=== PATIENT | male | born 1980 | race Hispanic/Latino ===

== ENCOUNTER 2018-12-01 15:08 | Emergency (ER) | payer OTHER, SELFPAY ==
[2018-12-01 15:09] VITALS: BP 133/70; PULSE 65; RESP 16; TEMP 36.6; O2SAT 100; BMI 24.3
--- NOTE | 2018-12-01 16:51 | ED.VISSUMM ---
- ER Visit Summary Date of Service: 12/01/18 Chief Complaint: Bilateral ear pain History of Present Illness: The patient is a 38 M who has bilateral ear pain. It started a week ago. He denies any drainage from the ears. No fevers. He states that started with a left and then traveled to the right and now both of them hurt. He admits to nasal congestion. He tried Tylenol without any relief. Physical Examination: Vital signs reviewed. HEENT exam unremarkable. No signs of otitis media. No fluid behind the eardrums. He does have sinus congestion. Heart is regular rate and rhythm without murmurs. Lungs are clear to auscultation. Abdomen is soft and nontender. Extremities reveal no edema. Skin exam normal. Neurologic exam normal. Test Results: None performed Emergency Department Course and Treatment: This likely is a URI. I will treat him with Mucinex D. He will follow-up with his PCP Treatment Plan: [] Disposition: Discharge Impression: Viral URI This note was generated with [id number] dictation software. It may contain incorrect words, spelling, and punctuation that were not noted in review of the chart prior to signing ED Disposition - Plan for ED Patient: Referrals: Care Physician,No Primary [Primary Care Provider] -
--- NOTE | 2018-12-01 16:52 | ED.DEP ---
ED Disposition - Plan for ED Patient: Disposition: Home or Assisted Living Instructions: EARACHE w/o Infection (Adult) Prescriptions: Guaifenesin/Pseudoephedrne HCl [Mucinex D ER 600-60 mg Tablet] 1 ea PO BID #14 tab.er.12h Prescription Printed Referrals: Care Physician,No Primary [Primary Care Provider] -
== END 2018-12-01 17:45 | disposition home or self-care (01) ==
LOC: ED 17:06
PROVIDERS: Emergency Provider Emergency Medicine
DX: J06.9 Acute upper respiratory infection, unspecified (principal); H92.03 Otalgia, bilateral
CPT/HCPCS: 99282

== ENCOUNTER 2021-06-19 11:51 | Emergency (ER) | payer OTHER, SELFPAY ==
[2021-06-19 11:51] VITALS: BP 129/105; PULSE 60; RESP 16; TEMP 36.1; O2SAT 99; BMI 26.4
--- NOTE | 2021-06-19 12:13 | EX.ED.DYSGE1 ---
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 He states he lifts a pallet up onto a table where he does the repair and then he lifts it over onto a pile. In doing this 2 days ago, he suddenly had pain in his right upper quadrant, it has been sore ever since, and today at work, he was having trouble lifting and doing his usual job because of the pain. He denies any problems eating or any symptoms made worse by doing so. When he is sitting at rest he feels okay. He took some Tylenol this morning, that helped some. PFSH PFSH Medical History no medical history no medical history Home Medications amoxicillin-pot clavulanate [Augmentin 875-125 Tablet] 1 ea PO BID #14 tab 11/13/16 [Rx Last Taken Unknown] pseudoephedrine-guaifenesin 1 ea PO BID #14 tab.er.12h 12/01/18 [Rx Last Taken Unknown] Allergy/AdvReac Type Severity Reaction Status Date / Time No Known Allergies Allergy Verified 06/19/21 11:53 Social History Smoking Status: Current some day smoker ROS ROS ED Constitutional Constitutional ED: Denies chills or fever(s) Eyes Eyes: Denies change in vision or diplopia ENT ENT ED: Denies rhinorrhea or sore throat Cardiovascular Cardiovascular: Denies chest pain or palpitations Respiratory/Chest Respiratory/Chest: Denies cough or dyspnea Gastrointestinal Gastrointestinal: Reports as per HPI and abdominal pain; Denies diarrhea, nausea or vomiting Genitourinary Genitourinary ED: Denies dysuria or hematuria Musculoskeletal Musculoskeletal: Denies back pain or neck pain Integumentary Denies abscess or rash Neurologic Neurologic: Denies headache(s), paresthesias or weakness Psychiatric Psychiatric: Denies anxiety or suicidal thoughts EXAM Physical Exam Const Vital Signs: 06/19/21 11:51 Temperature 97 F L Temperature Source Temporal Pulse Rate 60 Respiratory Rate 16 Blood Pressure 129/105 H Blood Pressure Mean 113 Pulse Ox 99 Oxygen Delivery Method Room Air Positive well nourished and well developed General Appearance ED: well developed and NAD HEENT Reports moist mucous membranes normocephalic and atraumatic Eyes PERRL and EOMs intact bilaterally Neck full ROM and supple Resp normal respiratory effort and clear to auscultation bilaterally Cardio regular rate, regular rhythm and no murmurs GI non-distended GI Narrative: Patient has some mild tenderness at the bottom edge of the right upper quadrant costal margin and into the musculature of the abdominal wall which is normal-appearing. Palpation is also normal otherwise. No palpable masses or bulges. No hernia. Also tender onto the right lateral ribs just barely, and associated intercostal musculature. No step-off or signs of injury. Patient can move around without any apparent difficulty. Auscultation: normoactive bowel sounds Palpation: soft Back/Spine no CVA tenderness General Back: other FROM Extremity normal to inspection General Extremety ED: Negative for edema, pulses abnormal or tenderness General Extremity: Negative for edema or pulses abnormal Neuro oriented x3, CN's II-XII intact bilaterally and no sensory deficits noted Sensorium / Orientation: awake and alert Motor Exam: strength 5/5 throughout Skin no rashes or lesions noted and no wounds MDM MDM MDM Narrative Medical decision making narrative: Reassured patient this is likely an abdominal oblique strain, I do not think he needs any studies right now just, just ibuprofen and lifting restrictions which were given to him. Discharge Plan Triage Chief Complaint: Abd Pain ED Provider: Justice Escobar Dx/Rx/DC Orders Clinical Impression: Abdominal muscle strain Instructions: ED Muscle Strain, Abdomen Prescriptions: No Action amoxicillin-pot clavulanate [Augmentin] 1 EACH tablet 1 ea PO BID Qty: 14 RF: 0 pseudoephedrine-guaifenesin 1 EACH tablet extended release 12 hr 1 ea PO BID Qty: 14 RF: 0 Primary Care Provider: Care Physician,No Primary Referrals: Corporate,Care [GROUP OF PHYSICIANS] - 2 Days Care Physician,No Primary [Primary Care Provider] - Activity Restrictions/Additional Instructions: OTC ibuprofen as needed for pain Disposition Disposition: Home, Self Care
--- NOTE | 2021-06-19 12:28 | ED.RN ---
pt to go to [facility] upon discharge for drug testing
--- NOTE | 2021-06-19 12:37 | CM.ED ---
SW Note Referral Source: Case Find Referral Reason: No Primary Care Physician (PCP) SW reviewed chart and noted that patient has no PCP. SW provided patient with list of [facility] and [facility]ician List for reference. SW also provided patient with handout ?Where to go When?. No other issues or concerns voiced at this time. SW remains available for any additional needs. Plan: Provided patient with PCP information Elisa HAIDER
[2021-06-19] MEDS: Ibuprofen 600 MG Tablet PO (12:46)
== END 2021-06-19 12:55 | disposition home or self-care (01) ==
LOC: ED 12:32
PROVIDERS: Emergency Provider Emergency Medicine; Visit Provider Emergency Medicine
DX: S39.011A Strain of muscle, fascia and tendon of abdomen, initial encounter (principal); F17.200 Nicotine dependence, unspecified, uncomplicated; X58.XXXA Exposure to other specified factors, initial encounter
CPT/HCPCS: 99283